=== PATIENT | female | born 1950 | race Caucasian/White ===

== ENCOUNTER 2017-05-01 21:43 | Emergency (ER) | payer MEDICARE, OTHER ==
[2017-05-01 21:44] VITALS: BP 144/67; PULSE 88; RESP 16; TEMP 98.1; O2SAT 97
[2017-05-01] MEDS ORDERED: CLINDAMYCIN PHOS 300 MG/2 ML VIAL IM ONE (23:45)
[2017-05-01] MEDS ORDERED: ATOR20TA15 PO (23:50)
[2017-05-01] MEDS ORDERED: DIAZ5TAB PO (23:50)
[2017-05-01] MEDS ORDERED: VITA100064 PO (23:50)
[2017-05-01] MEDS ORDERED: ASPI81CH CHEW (23:50)
[2017-05-01] MEDS ORDERED: VALS1TAB65 PO (23:50)
[2017-05-01] MEDS ORDERED: MORP1TAB24 PO (23:50)
[2017-05-01] MEDS ORDERED: AMLO5TAB2 PO (23:50)
[2017-05-01] MEDS ORDERED: ISOS60TA PO (23:50)
[2017-05-01] MEDS ORDERED: LEXA20TA PO (23:50)
[2017-05-01] MEDS ORDERED: LACTCAP8 PO (23:50)
[2017-05-01] MEDS ORDERED: LEVO.075 PO (23:50)
[2017-05-01] MEDS ORDERED: OMEP20TA PO (23:50)
[2017-05-01] MEDS ORDERED: BACT800T5 PO (23:56)
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
== END 2017-05-02 01:00 | disposition home or self-care (01) ==
LOC: NEPC 21:43
DX: L03.115 Cellulitis of right lower limb (principal); Z79.82 Long term (current) use of aspirin
CPT/HCPCS: 96372